=== PATIENT | male | born 1995 | race Caucasian/White ===

== ENCOUNTER 2023-09-15 11:54 | Emergency (ER) | payer OTHER ==
[~2023-09-15] VITALS: Ht 154.9 cm; Wt 59.0 kg
[~2023-09-15 11:54] MED LIST: CODACE30 PO; PENVK500 PO; RXCODACET PO; RXPENVK250 PO
[2023-09-15] MEDS ORDERED: Bactrim Ds Tab1 EACH PO (12:41)
== END 2023-09-15 12:42 | disposition home or self-care (01) ==
LOC: ER 11:54
DX: M27.2 Inflammatory conditions of jaws (principal); Z79.899 Other long term (current) drug therapy
CPT/HCPCS: 99282